=== PATIENT | female | born 1970 | race Caucasian/White ===

== ENCOUNTER 2023-12-19 03:13 | Emergency (ER) | payer BC ==
[~2023-12-19] VITALS: Ht 160 cm; Wt 81.6 kg
[2023-12-19] MEDS: IPRATROPIUM NEB FS 0.5 MG/2.5 ML AMPUL.NEB NEB ONE (04:06)
[2023-12-19] MEDS: ALBUTEROL FS 2.5 MG/3 ML VIAL.NEB NEB ONE (04:06)
[2023-12-19 04:07] VITALS: O2SAT 95
[2023-12-19] MEDS ORDERED: IPRATROPIUM NEB FS 0.5 MG/2.5 ML AMPUL.NEB ONE (04:07)
[2023-12-19] MEDS ORDERED: ALBUTEROL FS 2.5 MG/3 ML VIAL.NEB ONE (04:07)
[2023-12-19 04:17] VITALS: O2SAT 100
[2023-12-19 04:37] VITALS: BP 130/80; TEMP 97.6; O2SAT 100
== END 2023-12-19 04:41 | disposition home or self-care (01) ==
LOC: ER 03:16
DX: J45.909 Unspecified asthma, uncomplicated (principal); F41.9 Anxiety disorder, unspecified; E78.5 Hyperlipidemia, unspecified; Z60.2 Problems related to living alone
CPT/HCPCS: 94799-TC

== ENCOUNTER 2024-01-07 20:35 | Emergency (ER) | payer BC ==
[~2024-01-07] VITALS: Ht 152.4 cm; Wt 81.6 kg
[2024-01-07] MEDS ORDERED: methylPREDNISolone SOD SUCC 125 MG/2ML VIAL ONE (20:46)
[2024-01-07] MEDS: ALBUTEROL FS 2.5 MG/3 ML VIAL.NEB NEB ONE (20:52)
[2024-01-07] MEDS: IPRATROPIUM NEB FS 0.5 MG/2.5 ML AMPUL.NEB NEB ONE (20:52)
[2024-01-07 20:53] VITALS: O2SAT 99
[2024-01-07] MEDS: methylPREDNISolone SOD SUCC 125 MG/2ML VIAL IV ONE (20:54)
[2024-01-07] MEDS ORDERED: ALBUTEROL FS 2.5 MG/3 ML VIAL.NEB ONE (20:54)
[2024-01-07] MEDS ORDERED: IPRATROPIUM NEB FS 0.5 MG/2.5 ML AMPUL.NEB ONE (20:54)
[2024-01-07] MEDS: IV NS 0.9% 1,000 ML BAG IV ONE (20:55)
[2024-01-07] MEDS: LORAZEPAM INJ 2 MG/ML VIAL IV ONE (21:00)
[2024-01-07] MEDS ORDERED: LORAZEPAM INJ 2 MG/ML VIAL ONE (21:04)
[2024-01-07 21:08] VITALS: O2SAT 100
[2024-01-07 23:57] LABS: BASOPHILS % (AUTO) 0.3 % (0.0-2.0); EOSINOPHILS % (AUTO) 0.1 % (0.0-6.0); HEMATOCRIT 41 % (33-45); HEMOGLOBIN 13.9 g/dL (11.5-14.8); LYMPHOCYTES % (AUTO) 11.9 % (20.0-44.0); MEAN CORPUSCULAR HEMOGLOBIN 32 PG (26.0-33.0); MEAN CORPUSCULAR HGB CONC 34 g/dl (31.0-36.0); MEAN CORPUSCULAR VOLUME 94 fL (82-100); MONOCYTES # (AUTO) 0.1 K/uL (0.1-1.30); MONOCYTES % (AUTO) 0.9 % (2.0-12.0); NEUTROPHILS % (AUTO) 86.8 % (43.0-81.0); PLATELET COUNT (AUTO) 219 K/uL (150-450); RED BLOOD CELL COUNT(AUTO) 4.33 MIL/uL (4.0-5.2); RED CELL DISTRIBUTION WIDTH 12.9 % (11.5-15.0); WHITE BLOOD COUNT (AUTO) 8.1 K/uL (4.3-11.0)
[2024-01-08] MEDS: ALBUTEROL FS 2.5 MG/3 ML VIAL.NEB NEB ONE (00:05)
[2024-01-08] MEDS ORDERED: ALBUTEROL FS 2.5 MG/3 ML VIAL.NEB ONE (00:06)
[2024-01-08 00:09] VITALS: O2SAT 96
[2024-01-08 00:11] LABS: ALBUMIN 3.7 g/dL (3.4-5.0); BILIRUBIN,TOTAL 0.3 mg/dL (0.2-1.0); CALCIUM, SERUM 8.8 mg/dL (8.5-10.1); CREATININE 0.6 mg/dL (0.6-1.3); POTASSIUM 3.5 mmol/L (3.5-5.1); TOTAL PROTEIN, SERUM 7.1 g/dL (6.4-8.2)
[2024-01-08 00:24] VITALS: O2SAT 99
[2024-01-08] MEDS ORDERED: PRED20TA PO (00:26)
[2024-01-08 00:37] VITALS: BP 126/67; TEMP 98.2; O2SAT 98
== END 2024-01-08 00:38 | disposition home or self-care (01) ==
LOC: ER 20:37
DX: R06.02 Shortness of breath (principal); I10 Essential (primary) hypertension; E78.5 Hyperlipidemia, unspecified; J45.909 Unspecified asthma, uncomplicated; F17.200 Nicotine dependence, unspecified, uncomplicated; F41.9 Anxiety disorder, unspecified; Z79.52 Long term (current) use of systemic steroids; Z86.79 Personal history of other diseases of the circulatory system; Z60.2 Problems related to living alone
CPT/HCPCS: 99285; 96374; 96361; 96375; 93005; 85025; 85378; 80053; 84484; 94640 ×2; J2060; J2919; J7030